=== PATIENT | female | born 2000 | race Caucasian/White ===

== ENCOUNTER 2022-12-10 07:36 | Day surgery (SDC) | payer BC ==
[~2022-12-10 07:36] MED LIST: Sodium Chloride 0.9% 10 ML Syringe FLUSH PRN
[2022-12-10] MEDS ORDERED: Propofol 200 MG/20 ML SDV IV ONE (08:00)
[2022-12-10] MEDS ORDERED: Ondansetron 4 MG/2 ML SDV IV ONE (08:00)
[2022-12-10 08:09] LABS: HCG QUALITATIVE,URINE NEGATIVE (NEGATIVE)
[2022-12-10] MEDS: Lactated Ringers 1,000 ML IV SCH (08:16)
[2022-12-10] MEDS ORDERED: Midazolam 1 MG/ML 2 ML SDV ONE (08:46)
[2022-12-10] MEDS ORDERED: Propofol 200 MG/20 ML SDV ONE ×2 (08:47→09:35)
[2022-12-10] MEDS ORDERED: Lidocaine 2% 5 ML SDV ONE (08:47)
[2022-12-10] MEDS ORDERED: Glycopyrrolate 0.2 MG/ML SDV ONE (08:47)
[2022-12-10] MEDS ORDERED: Scopolamine 1.5 MG Transdermal Patch ONE (08:49)
== END 2022-12-10 10:54 | disposition home or self-care (01) ==
LOC: KA.SDS 07:36
PROVIDERS: ATTEND Family Medicine
DX: K21.00 Gastro-esophageal reflux disease with esophagitis, without bleeding (principal); K29.50 Unspecified chronic gastritis without bleeding; I10 Essential (primary) hypertension; E28.2 Polycystic ovarian syndrome; F41.0 Panic disorder [episodic paroxysmal anxiety]; F32.A Depression, unspecified; M25.562 Pain in left knee; Z86.2 Personal history of diseases of the blood and blood-forming organs and certain disorders involving the immune mechanism; Z86.14 Personal history of Methicillin resistant Staphylococcus aureus infection; Z79.84 Long term (current) use of oral hypoglycemic drugs; Z79.899 Other long term (current) drug therapy
CPT/HCPCS: 00731; 81025; A9270-GY; J2250; J2405; J2704; J3490; J7120